=== PATIENT | male | born 1970 | race Caucasian/White ===

== ENCOUNTER 2024-05-23 08:45 | Inpatient (IN) ==
--- NOTE | 2024-05-23 09:07 | DR.URIAD ---
HPI Time Seen Time Seen by Provider: 05/23/24 09:05 PE Vital Signs Vitals: Vital Signs Temperature 96.5 F Temperature 97.0 F Pulse Rate [Left] 78 Pulse Rate 89 Respiratory Rate 24 Respiratory Rate 20 Blood Pressure [Right Arm] 119/77 Blood Pressure 112/80 O2 Sat by Pulse Oximetry 97 O2 Sat by Pulse Oximetry 94 ROR Labs Reviewed 05/27/24 05:34 05/27/24 05:34 Laboratory: 05/23/24 09:40 Blood Blood Culture - Preliminary 05/23/24 09:35 Blood Blood Culture - Preliminary WBC 12.6 X10^3/uL (3.6-10.0) H 05/23/24 09:40 RBC 4.86 X10^6/uL (4.7-6.0) 05/23/24 09:40 Hgb 14.1 g/dL (13.5-18.0) 05/23/24 09:40 Hct 41.6 % (42.0-54.0) L 05/23/24 09:40 MCV 85.7 fL (80.0-100.0) 05/23/24 09:40 MCH 29.0 pg (27.0-34.0) 05/23/24 09:40 MCHC 33.8 g/dL (33.0-35.0) 05/23/24 09:40 RDW 13.8 % (11.6-16.5) 05/23/24 09:40 Plt Count 817 X10^3/uL (150.0-450.0) H 05/23/24 09:40 MPV 7.1 fL (7.4-11.0) L 05/23/24 09:40 Neut % (Auto) 78.6 % (42.0-75.0) H 05/23/24 09:40 Lymph % (Auto) 11.5 % (21.0-51.0) L 05/23/24 09:40 [place] % (Auto) 7.8 % (0.0-13.0) 05/23/24 09:40 Eos % (Auto) 1.2 % (0.9-2.9) 05/23/24 09:40 Baso % (Auto) 0.9 % (0.2-1.0) 05/23/24 09:40 Neut # (Auto) 9.9 x10^3/uL (2.2-4.8) H 05/23/24 09:40 Lymph # (Auto) 1.5 X10^3/uL (1.3-2.9) 05/23/24 09:40 [place] # (Auto) 1.0 x10^3/uL (0.3-0.8) H 05/23/24 09:40 Eos # (Auto) 0.2 x10^3/uL (0.0-0.2) 05/23/24 09:40 Baso # (Auto) 0.1 X10^3/uL (0.0-0.1) 05/23/24 09:40 Absolute Nucleated RBC 0.0 /100WBC 05/23/24 09:40 Sodium 134 mmol/L (136-145) L 05/23/24 09:40 Corrected Sodium 135 mmol/L (136-145) L 05/23/24 09:40 Potassium 3.9 mmol/L (3.5-5.1) 05/23/24 09:40 Chloride 95 mmol/L (98-107) L 05/23/24 09:40 Carbon Dioxide 31.4 mmol/L (21-32) 05/23/24 09:40 BUN 20 mg/dL (7-18) H 05/23/24 09:40 Creatinine 1.32 mg/dL (0.70-1.30) H 05/23/24 09:40 Est GFR (MDRD) Af Amer > 60 (>60) 05/23/24 09:40 Est GFR (MDRD) Non-Af 60 (>60) 05/23/24 09:40 Glucose 125 mg/dL (65-99) H 05/23/24 09:40 Lactic Acid 2.1 mmol/L (0.4-2.0) H 05/23/24 09:40 Calcium 9.4 mg/dL (8.5-10.1) 05/23/24 09:40 Corrected Calcium 10.8 mg/dL (8.5-10.1) H 05/23/24 09:40 Total Bilirubin 0.50 mg/dL (0.2-1.0) 05/23/24 09:40 AST 27 Units/L (15-37) 05/23/24 09:40 ALT 52 Units/L (12-78) 05/23/24 09:40 Alkaline Phosphatase 184 Units/L (46-116) H 05/23/24 09:40 Total Protein 8.5 g/dL (6.4-8.2) H 05/23/24 09:40 Albumin 2.2 g/dL (3.4-5.0) L 05/23/24 09:40 Globulin 6.3 g/dL (2.5-4.5) H 05/23/24 09:40 Albumin/Globulin Ratio 0.3 Ratio (1.1-2.1) L 05/23/24 09:40 Amylase 33 Units/L (25-115) 05/23/24 09:40 Lipase 19 Units/L (16-77) 05/23/24 09:40 Ethyl Alcohol mg/dL < 3 mg/dL (0-19.9) 05/23/24 09:40 Opioid Opioid Risk Tool Total: 0 Total Score Risk Category: Low Risk Copyright: Edis [employer] predicting aberrant behaviors Discharge Plan Discharge Plan Patient Disposition: 01 HOME, SELF-CARE Condition: Stable
[2024-05-23 09:17] VITALS: BMI 29.0
--- NOTE | 2024-05-23 09:40 | EKG ---
Test Reason : AMS Blood Pressure : */* mmHG Vent. Rate : 87 BPM Atrial Rate : 87 BPM P-R Int : 162 ms QRS Dur : 104 ms QT Int : 378 ms P-R-T Axes : 35 11 34 degrees QTc Int : 454 ms Normal sinus rhythm Incomplete right bundle branch block Borderline ECG No previous ECGs available Confirmed by Zia Jimenez MD ([id number]) on 05/23/2024 12:31:02 PM Referred By: Confirmed By: Zia Jimenez MD
[2024-05-23 10:18] LABS: BASOPHILS # (AUTO) 0.1 X10^3/uL (0.0-0.1); BASOPHILS % (AUTO) 0.9 % (0.2-1.0); EOSINOPHILS # (AUTO) 0.2 x10^3/uL (0.0-0.2); EOSINOPHILS % (AUTO) 1.2 % (0.9-2.9); HEMATOCRIT 41.6 % (42.0-54.0); HEMOGLOBIN 14.1 g/dL (13.5-18.0); LYMPHOCYTES # (AUTO) 1.5 X10^3/uL (1.3-2.9); LYMPHOCYTES % (AUTO) 11.5 % (21.0-51.0); MEAN CORPUSCULAR HGB CONC 33.8 g/dL (33.0-35.0); MEAN CORPUSCULAR VOLUME 85.7 fL (80.0-100.0); MEAN PLATELET VOLUME 7.1 fL (7.4-11.0); MONOCYTES % (AUTO) 7.8 % (0.0-13.0); NEUTROPHILS # (AUTO) 9.9 x10^3/uL (2.2-4.8); NEUTROPHILS % (AUTO) 78.6 % (42.0-75.0); PLATELET COUNT 817 X10^3/uL (150.0-450.0); RED BLOOD COUNT 4.86 X10^6/uL (4.7-6.0); RED CELL DISTRIBUTION WIDTH 13.8 % (11.6-16.5); WHITE BLOOD COUNT 12.6 X10^3/uL (3.6-10.0)
[2024-05-23 10:27] LABS: ALANINE AMINOTRANSFERASE 52 Units/L (12-78); ALBUMIN 2.2 g/dL (3.4-5.0); ALKALINE PHOSPHATASE 184 Units/L (46-116); AMYLASE 33 Units/L (25-115); ASPARTATE AMINO TRANSFERASE 27 Units/L (15-37); BLOOD UREA NITROGEN 20 mg/dL (7-18); CALCIUM 9.4 mg/dL (8.5-10.1); CARBON DIOXIDE 31.4 mmol/L (21-32); CHLORIDE 95 mmol/L (98-107); COR CA(FOR HYPOALB) 10.8 mg/dL (8.5-10.1); COR NA(FOR HYPERGLY) 135 mmol/L (136-145); CREATININE 1.32 mg/dL (0.70-1.30); GLUCOSE 125 mg/dL (65-99); LIPASE 19 Units/L (16-77); POTASSIUM 3.9 mmol/L (3.5-5.1); SODIUM 134 mmol/L (136-145); TOTAL PROTEIN 8.5 g/dL (6.4-8.2); eGFR NON BLACK RACES 60 (>60)
[2024-05-23 10:29] LABS: BLOOD ALCOHOL < 3 mg/dL (0-19.9)
--- NOTE | 2024-05-23 11:49 | RAD ---
EXAM:Portable chestHISTORY:Altered mental statusCOMPARISON:NoneFINDINGS:Heart size is normal. Vikki are normal. Aorta is somewhat ectatic. No acute infiltrates or pleural effusions identified. Subsegmental atelectasis right lung base. Bony thorax is unremarkable.IMPRESSION:No acute infiltratesSubsegmental atelectasis right lung baseTHIS IS AN ELECTRONICALLY VERIFIED FINAL REPORT05/23/2024 11:45 AM - Electronically signed by Mike Kelley MD
--- NOTE | 2024-05-23 12:16 | CT ---
EXAM: CT brain without IV contrast HISTORY: AMS; PT C/O NECK PAIN THAT RADIATES UP - COMPARISON: None. TECHNIQUE: Multiple axial images of the brain were obtained without IV contrast. Dose reduction techniques inc luding Automated Exposure Control (AEC) and adjustment of mA and kV were utilized. FINDINGS: Visualized portions of the paranasal sinuses and mastoid air cells are clear. No calvarial fracture i s seen. No acute intracranial hemorrhage or mass effect is seen. The cerebral ventricles are normal i n size. No evidence of acute CVA. Beam hardening artifacts are seen in the middle cranial fossa. IMPRESSION: No abnormalities are seen. THIS IS AN ELECTRONICALLY VERIFIED FINAL REPORT 05/23/2024 12:13 PM - Electronically signed by Ciaran Oglesby MD
[2024-05-23] MEDS: ZOSYN VIAL 3.375 GRAMS 3.375 G in NS 100 ML IV 100 ML IV ONE (14:53)
[2024-05-23] MEDS: NS 1,000 ML IV 1,000 ML IV ONE (14:53)
[2024-05-23] MEDS ORDERED: ZOFRAN TAB 4 MG PO PRN (15:32)
[2024-05-23] MEDS: NS 1,000 ML IV 1,000 ML IV SCH (16:12)
[2024-05-23] MEDS: NICOTINE PATCH TD SCH (17:56)
[2024-05-23] MEDS: ZOSYN VIAL 4.5 GRAMS 4.5 G in NS 100 ML IV 100 ML IV SCH (21:04)
[2024-05-24] MEDS: MOTRIN TAB 600 MG PO PRN (01:38)
[2024-05-24 06:21] LABS: BASOPHILS # (AUTO) 0.2 X10^3/uL (0.0-0.1); BASOPHILS % (AUTO) 1.2 % (0.2-1.0); EOSINOPHILS # (AUTO) 0.1 x10^3/uL (0.0-0.2); EOSINOPHILS % (AUTO) 0.5 % (0.9-2.9); HEMATOCRIT 36.2 % (42.0-54.0); HEMOGLOBIN 12.1 g/dL (13.5-18.0); LYMPHOCYTES # (AUTO) 1.9 X10^3/uL (1.3-2.9); LYMPHOCYTES % (AUTO) 12.5 % (21.0-51.0); MEAN CORPUSCULAR HEMOGLOBIN 28.6 pg (27.0-34.0); MEAN CORPUSCULAR HGB CONC 33.5 g/dL (33.0-35.0); MEAN CORPUSCULAR VOLUME 85.5 fL (80.0-100.0); MONOCYTES % (AUTO) 6.5 % (0.0-13.0); NEUTROPHILS # (AUTO) 12.4 x10^3/uL (2.2-4.8); NEUTROPHILS % (AUTO) 79.3 % (42.0-75.0); PLATELET COUNT 756 X10^3/uL (150.0-450.0); RED BLOOD COUNT 4.23 X10^6/uL (4.7-6.0); RED CELL DISTRIBUTION WIDTH 13.7 % (11.6-16.5); WHITE BLOOD COUNT 15.7 X10^3/uL (3.6-10.0)
[2024-05-24 06:34] LABS: ALANINE AMINOTRANSFERASE 41 Units/L (12-78); ALBUMIN 1.7 g/dL (3.4-5.0); ALKALINE PHOSPHATASE 172 Units/L (46-116); ASPARTATE AMINO TRANSFERASE 24 Units/L (15-37); BLOOD UREA NITROGEN 19 mg/dL (7-18); CALCIUM 8.9 mg/dL (8.5-10.1); CARBON DIOXIDE 25.5 mmol/L (21-32); CHLORIDE 100 mmol/L (98-107); COR CA(FOR HYPOALB) 10.7 mg/dL (8.5-10.1); COR NA(FOR HYPERGLY) 134 mmol/L (136-145); CREATININE 1.11 mg/dL (0.70-1.30); GLUCOSE 118 mg/dL (65-99); POTASSIUM 4.1 mmol/L (3.5-5.1); SODIUM 134 mmol/L (136-145); TOTAL PROTEIN 6.9 g/dL (6.4-8.2); eGFR NON BLACK RACES > 60 (>60)
[2024-05-24] MEDS: FOLIC ACID TAB 1 MG PO SCH (09:10)
[2024-05-24] MEDS: FLOMAX PO SCH (09:10)
[2024-05-24] MEDS ORDERED: DEMEROL INJ IVP PRN (10:43)
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
[2024-05-24] MEDS: VIBRAMYCIN 100 MG in D5W 250 ML IV 250 ML IV SCH (11:37)
[2024-05-24] MEDS: LOVENOX INJ 40 MG SYR SC SCH (11:37)
--- NOTE | 2024-05-24 16:29 | RAD ---
EXAM:X-ray lumbar spine five viewsHISTORY:BACK PAIN -COMPARISON:None.FINDINGS:No scoliosis. Large anterior and lateral osteophytes are seen at L1-2 and L2-3.No pars defect is seen. There is mild grade 1 retrolisthesis of L4 on L5 and L3 on L4 likely from arthritic changes.No compression fracture is seen. No disc space narrowing is seen. Hypertrophic arthritic facet changes are seen at L5-S1.IMPRESSION:Arthritic changes are seen in the lumbar spine as described above.THIS IS AN ELECTRONICALLY VERIFIED FINAL REPORT05/24/2024 4:25 PM - Electronically signed by Ciaran Oglesby MD
[2024-05-25 06:12] LABS: BASOPHILS # (AUTO) 0.2 X10^3/uL (0.0-0.1); BASOPHILS % (AUTO) 1.1 % (0.2-1.0); EOSINOPHILS # (AUTO) 0.1 x10^3/uL (0.0-0.2); EOSINOPHILS % (AUTO) 0.8 % (0.9-2.9); HEMATOCRIT 36.2 % (42.0-54.0); HEMOGLOBIN 12.1 g/dL (13.5-18.0); LYMPHOCYTES # (AUTO) 2.1 X10^3/uL (1.3-2.9); LYMPHOCYTES % (AUTO) 15.2 % (21.0-51.0); MEAN CORPUSCULAR HEMOGLOBIN 28.4 pg (27.0-34.0); MEAN CORPUSCULAR HGB CONC 33.3 g/dL (33.0-35.0); MEAN CORPUSCULAR VOLUME 85.2 fL (80.0-100.0); MEAN PLATELET VOLUME 7.2 fL (7.4-11.0); MONOCYTES # (AUTO) 1.2 x10^3/uL (0.3-0.8); NEUTROPHILS % (AUTO) 73.9 % (42.0-75.0); PLATELET COUNT 758 X10^3/uL (150.0-450.0); RED BLOOD COUNT 4.25 X10^6/uL (4.7-6.0); RED CELL DISTRIBUTION WIDTH 13.9 % (11.6-16.5); WHITE BLOOD COUNT 13.5 X10^3/uL (3.6-10.0)
[2024-05-25 06:29] LABS: ALANINE AMINOTRANSFERASE 38 Units/L (12-78); ALBUMIN 1.7 g/dL (3.4-5.0); ALKALINE PHOSPHATASE 167 Units/L (46-116); ASPARTATE AMINO TRANSFERASE 19 Units/L (15-37); BLOOD UREA NITROGEN 14 mg/dL (7-18); CALCIUM 8.9 mg/dL (8.5-10.1); CARBON DIOXIDE 25.9 mmol/L (21-32); CHLORIDE 101 mmol/L (98-107); COR CA(FOR HYPOALB) 10.7 mg/dL (8.5-10.1); CREATININE 0.95 mg/dL (0.70-1.30); GLUCOSE 109 mg/dL (65-99); POTASSIUM 3.8 mmol/L (3.5-5.1); SODIUM 136 mmol/L (136-145); TOTAL PROTEIN 6.9 g/dL (6.4-8.2); eGFR NON BLACK RACES > 60 (>60)
[2024-05-25] MEDS ORDERED: CONSULT PHARMACY - POTASSIUM & MAGNESIUM XX SCH (07:00)
--- NOTE | 2024-05-25 10:13 | PCM.PROG ---
Progress Note Progress Note for Day of Date of Exam: 05/25/24 Subjective Subjective: Patient seen at bedside, no acute events overnight. He states he is feeling better, leg pain and swelling is better. He is able to move his foot and leg more. He is currently admitted for LLE cellulitis. Wound Cx pending. He is currently on Zosyn and doxycycline. Patient reports having US done in [place] which did not show DVT. Labs/imaging reviewed: -WBC 13.5 Hgb 12.1 -Blood Cx negative -Wound Cx pending -Lumbar XR: arthritic changes. Plan: Continue IV antibiotics, follow final cultures. Continue pain control, keep leg elevated. Continue hydration, replace electrolytes prn. Continue current medications. Monitor AM labs/imaging. Past Medical Family Social History Allergies: Allergies No Known Allergies Allergy (Verified 05/23/24 09:19) Vital Signs and I&O's Vital Signs: Vital Signs Temperature 97.4 F Temperature 97.7 F Pulse Rate [Left] 70 Pulse Rate [Left] 67 Respiratory Rate 19 Respiratory Rate 18 Blood Pressure [Right Arm] 117/67 Blood Pressure [Right Arm] 96/66 O2 Sat by Pulse Oximetry 94 O2 Sat by Pulse Oximetry 92 Intake and Output: Intake & Output 05/22/24 05/23/24 05/24/24 05/25/24 23:59 23:59 23:59 23:59 Intake Total 2202 / 2202 4103 / 4103 580 / 580 Output Total 950 / 950 2300 / 2300 275 / 275 Balance 1252 / 1252 1803 / 1803 305 / 305 Physical Exam Oriented: Normal Throat: Normal Cardiovascular: Normal Auscultation: Bowel Sounds: Normal Tenderness: Normal Skin: Tender, Hot and Wound (LLE erythema improved with open wound ) Musculoskeletal: Left and Leg Psychiatric: Normal Mood Description: Calm Affect: Normal Speech Pattern: Clear and Appropriate Laboratory and Diagnostics 05/25/24 05:42 05/25/24 05:42 Labs: 05/24/24 15:15 Leg - Right Wound Gram Stain - Final 05/24/24 15:15 Leg - Right Wound Culture - Preliminary 05/23/24 09:40 Blood Blood Culture - Preliminary 05/23/24 09:35 Blood Blood Culture - Preliminary Laboratory WBC 13.5 X10^3/uL (3.6-10.0) H 05/25/24 05:42 RBC 4.25 X10^6/uL (4.7-6.0) L 05/25/24 05:42 Hgb 12.1 g/dL (13.5-18.0) L 05/25/24 05:42 Hct 36.2 % (42.0-54.0) L 05/25/24 05:42 MCV 85.2 fL (80.0-100.0) 05/25/24 05:42 MCH 28.4 pg (27.0-34.0) 05/25/24 05:42 MCHC 33.3 g/dL (33.0-35.0) 05/25/24 05:42 RDW 13.9 % (11.6-16.5) 05/25/24 05:42 Plt Count 758 X10^3/uL (150.0-450.0) H 05/25/24 05:42 MPV 7.2 fL (7.4-11.0) L 05/25/24 05:42 Neut % (Auto) 73.9 % (42.0-75.0) 05/25/24 05:42 Lymph % (Auto) 15.2 % (21.0-51.0) L 05/25/24 05:42 [place] % (Auto) 9.0 % (0.0-13.0) 05/25/24 05:42 Eos % (Auto) 0.8 % (0.9-2.9) L 05/25/24 05:42 Baso % (Auto) 1.1 % (0.2-1.0) H 05/25/24 05:42 Neut # (Auto) 10.0 x10^3/uL (2.2-4.8) H 05/25/24 05:42 Lymph # (Auto) 2.1 X10^3/uL (1.3-2.9) 05/25/24 05:42 [place] # (Auto) 1.2 x10^3/uL (0.3-0.8) H 05/25/24 05:42 Eos # (Auto) 0.1 x10^3/uL (0.0-0.2) 05/25/24 05:42 Baso # (Auto) 0.2 X10^3/uL (0.0-0.1) H 05/25/24 05:42 Absolute Nucleated RBC 0.1 /100WBC 05/25/24 05:42 Sodium 136 mmol/L (136-145) 05/25/24 05:42 Corrected Sodium TNP 05/25/24 05:42 Potassium 3.8 mmol/L (3.5-5.1) 05/25/24 05:42 Chloride 101 mmol/L (98-107) 05/25/24 05:42 Carbon Dioxide 25.9 mmol/L (21-32) 05/25/24 05:42 BUN 14 mg/dL (7-18) 05/25/24 05:42 Creatinine 0.95 mg/dL (0.70-1.30) 05/25/24 05:42 Est GFR (MDRD) Af Amer > 60 (>60) 05/25/24 05:42 Est GFR (MDRD) Non-Af > 60 (>60) 05/25/24 05:42 Glucose 109 mg/dL (65-99) H 05/25/24 05:42 Lactic Acid 1.7 mmol/L (0.4-2.0) 05/23/24 15:00 Calcium 8.9 mg/dL (8.5-10.1) 05/25/24 05:42 Corrected Calcium 10.7 mg/dL (8.5-10.1) H 05/25/24 05:42 Total Bilirubin 0.50 mg/dL (0.2-1.0) 05/25/24 05:42 AST 19 Units/L (15-37) 05/25/24 05:42 ALT 38 Units/L (12-78) 05/25/24 05:42 Alkaline Phosphatase 167 Units/L (46-116) H 05/25/24 05:42 Total Protein 6.9 g/dL (6.4-8.2) 05/25/24 05:42 Albumin 1.7 g/dL (3.4-5.0) L 05/25/24 05:42 Globulin 5.2 g/dL (2.5-4.5) H 05/25/24 05:42 Albumin/Globulin Ratio 0.3 Ratio (1.1-2.1) L 05/25/24 05:42 Amylase 33 Units/L (25-115) 05/23/24 09:40 Lipase 19 Units/L (16-77) 05/23/24 09:40 Ethyl Alcohol mg/dL < 3 mg/dL (0-19.9) 05/23/24 09:40 Plan (1) Cellulitis: Status: Acute Qualifiers: Laterality: left Site of cellulitis: extremity Site of cellulitis of extremity: lower extremity Qualified Code(s): L03.116 - Cellulitis of left lower limb (2) Leg ulcer: Status: Acute Qualifiers: Laterality: left Non-pressure ulcer stage: unspecified non-pressure ulcer stage Qualified Code(s): L97.929 - Non-pressure chronic ulcer of unspecified part of left lower leg with unspecified severity (3) Atelectasis: Status: Acute
[2024-05-26 06:09] LABS: BASOPHILS # (AUTO) 0.1 X10^3/uL (0.0-0.1); BASOPHILS % (AUTO) 0.9 % (0.2-1.0); EOSINOPHILS # (AUTO) 0.1 x10^3/uL (0.0-0.2); EOSINOPHILS % (AUTO) 1.1 % (0.9-2.9); HEMATOCRIT 35.7 % (42.0-54.0); HEMOGLOBIN 11.7 g/dL (13.5-18.0); LYMPHOCYTES # (AUTO) 1.6 X10^3/uL (1.3-2.9); LYMPHOCYTES % (AUTO) 12.9 % (21.0-51.0); MEAN CORPUSCULAR HGB CONC 32.8 g/dL (33.0-35.0); MEAN CORPUSCULAR VOLUME 85.3 fL (80.0-100.0); MEAN PLATELET VOLUME 7.1 fL (7.4-11.0); MONOCYTES % (AUTO) 7.9 % (0.0-13.0); NEUTROPHILS # (AUTO) 9.5 x10^3/uL (2.2-4.8); NEUTROPHILS % (AUTO) 77.2 % (42.0-75.0); PLATELET COUNT 747 X10^3/uL (150.0-450.0); RED BLOOD COUNT 4.18 X10^6/uL (4.7-6.0); RED CELL DISTRIBUTION WIDTH 13.8 % (11.6-16.5); WHITE BLOOD COUNT 12.3 X10^3/uL (3.6-10.0)
[2024-05-26 06:25] LABS: ALANINE AMINOTRANSFERASE 47 Units/L (12-78); ALBUMIN 1.7 g/dL (3.4-5.0); ALKALINE PHOSPHATASE 129 Units/L (46-116); ASPARTATE AMINO TRANSFERASE 28 Units/L (15-37); BLOOD UREA NITROGEN 11 mg/dL (7-18); CALCIUM 8.6 mg/dL (8.5-10.1); CARBON DIOXIDE 27.9 mmol/L (21-32); CHLORIDE 102 mmol/L (98-107); COR CA(FOR HYPOALB) 10.4 mg/dL (8.5-10.1); COR NA(FOR HYPERGLY) 137 mmol/L (136-145); CREATININE 0.82 mg/dL (0.70-1.30); GLUCOSE 114 mg/dL (65-99); POTASSIUM 3.7 mmol/L (3.5-5.1); SODIUM 137 mmol/L (136-145); TOTAL PROTEIN 6.6 g/dL (6.4-8.2); eGFR NON BLACK RACES > 60 (>60)
[2024-05-26] MEDS ORDERED: CONSULT PHARMACY - POTASSIUM & MAGNESIUM XX SCH (08:00)
[2024-05-26] MEDS: K-DUR TAB 20 MEQ PO SCH (09:13)
[2024-05-26] MEDS: MAG-OX TAB PO SCH (09:13)
[2024-05-26] MEDS: NORCO 7.5/325 MG TAB PO PRN (10:34)
[2024-05-26] MEDS: MILK OF MAGNESIA PO SCH (10:34)
--- NOTE | 2024-05-26 11:15 | PCM.PROG ---
Progress Note Progress Note for Day of Date of Exam: 05/26/24 Subjective Subjective: Patient is a 54 year old male admitted for left lower extremity cellulitis. He is resting in bed this morning. No acute events overnight. He reports improvement in his leg pain and swelling. He is currently on Zosyn and Doxycycline. Patient reports having US done in [place] which did not show DVT. Labs/imaging reviewed: -WBC 12.3, Hgb 11.7, Plt 747, Na 137, K 3.7, Creatinine 0.82, Glucose 114 -Blood Cx negative -Wound Cx gram positive cocci -Lumbar XR: arthritic changes. Plan: Will continue IV antibiotics, follow final cultures. Continue pain control, keep leg elevated. Continue hydration, replace electrolytes prn. Continue current medications. Monitor AM labs/imaging. Past Medical Family Social History Allergies: Allergies No Known Allergies Allergy (Verified 05/23/24 09:19) Review of Systems ROS changes noted: see HPI Vital Signs and I&O's Vital Signs: Vital Signs Temperature 98.0 F Temperature 98.2 F Pulse Rate [Left] 80 Pulse Rate [Left] 69 Respiratory Rate 18 Respiratory Rate 18 Respiratory Rate 18 Blood Pressure [Right Arm] 167/92 Blood Pressure [Right Arm] 128/70 O2 Sat by Pulse Oximetry 99 O2 Sat by Pulse Oximetry 93 Intake and Output: Intake & Output 05/23/24 05/24/24 05/25/24 05/26/24 23:59 23:59 23:59 23:59 Intake Total 2202 / 2202 4103 / 4103 2926 / 2926 1255 / 1255 Output Total 950 / 950 2300 / 2300 775 / 775 600 / 600 Balance 1252 / 1252 1803 / 1803 2151 / 2151 655 / 655 Physical Exam Oriented: Normal Throat: Normal Cardiovascular: Normal Auscultation: Bowel Sounds: Normal Tenderness: Normal Skin: Red, Tender and Wound (LLE erythema improved with open wound ) Musculoskeletal: Left and Leg Psychiatric: Normal Mood Description: Calm Affect: Normal Speech Pattern: Clear and Appropriate Laboratory and Diagnostics 05/26/24 05:20 05/26/24 05:20 Labs: 05/24/24 15:15 Leg - Right Wound Gram Stain - Final 05/24/24 15:15 Leg - Right Wound Culture - Preliminary 05/23/24 09:40 Blood Blood Culture - Preliminary 05/23/24 09:35 Blood Blood Culture - Preliminary Laboratory WBC 12.3 X10^3/uL (3.6-10.0) H 05/26/24 05:20 RBC 4.18 X10^6/uL (4.7-6.0) L 05/26/24 05:20 Hgb 11.7 g/dL (13.5-18.0) L 05/26/24 05:20 Hct 35.7 % (42.0-54.0) L 05/26/24 05:20 MCV 85.3 fL (80.0-100.0) 05/26/24 05:20 MCH 28.0 pg (27.0-34.0) 05/26/24 05:20 MCHC 32.8 g/dL (33.0-35.0) L 05/26/24 05:20 RDW 13.8 % (11.6-16.5) 05/26/24 05:20 Plt Count 747 X10^3/uL (150.0-450.0) H 05/26/24 05:20 MPV 7.1 fL (7.4-11.0) L 05/26/24 05:20 Neut % (Auto) 77.2 % (42.0-75.0) H 05/26/24 05:20 Lymph % (Auto) 12.9 % (21.0-51.0) L 05/26/24 05:20 [place] % (Auto) 7.9 % (0.0-13.0) 05/26/24 05:20 Eos % (Auto) 1.1 % (0.9-2.9) 05/26/24 05:20 Baso % (Auto) 0.9 % (0.2-1.0) 05/26/24 05:20 Neut # (Auto) 9.5 x10^3/uL (2.2-4.8) H 05/26/24 05:20 Lymph # (Auto) 1.6 X10^3/uL (1.3-2.9) 05/26/24 05:20 [place] # (Auto) 1.0 x10^3/uL (0.3-0.8) H 05/26/24 05:20 Eos # (Auto) 0.1 x10^3/uL (0.0-0.2) 05/26/24 05:20 Baso # (Auto) 0.1 X10^3/uL (0.0-0.1) 05/26/24 05:20 Absolute Nucleated RBC 0.2 /100WBC 05/26/24 05:20 Sodium 137 mmol/L (136-145) 05/26/24 05:20 Corrected Sodium 137 mmol/L (136-145) 05/26/24 05:20 Potassium 3.7 mmol/L (3.5-5.1) 05/26/24 05:20 Chloride 102 mmol/L (98-107) 05/26/24 05:20 Carbon Dioxide 27.9 mmol/L (21-32) 05/26/24 05:20 BUN 11 mg/dL (7-18) 05/26/24 05:20 Creatinine 0.82 mg/dL (0.70-1.30) 05/26/24 05:20 Est GFR (MDRD) Af Amer > 60 (>60) 05/26/24 05:20 Est GFR (MDRD) Non-Af > 60 (>60) 05/26/24 05:20 Glucose 114 mg/dL (65-99) H 05/26/24 05:20 Lactic Acid 1.7 mmol/L (0.4-2.0) 05/23/24 15:00 Calcium 8.6 mg/dL (8.5-10.1) 05/26/24 05:20 Corrected Calcium 10.4 mg/dL (8.5-10.1) H 05/26/24 05:20 Magnesium 1.6 mg/dL (2.0-2.9) L 05/26/24 05:20 Total Bilirubin 0.30 mg/dL (0.2-1.0) 05/26/24 05:20 AST 28 Units/L (15-37) 05/26/24 05:20 ALT 47 Units/L (12-78) 05/26/24 05:20 Alkaline Phosphatase 129 Units/L (46-116) H 05/26/24 05:20 Total Protein 6.6 g/dL (6.4-8.2) 05/26/24 05:20 Albumin 1.7 g/dL (3.4-5.0) L 05/26/24 05:20 Globulin 4.9 g/dL (2.5-4.5) H 05/26/24 05:20 Albumin/Globulin Ratio 0.3 Ratio (1.1-2.1) L 05/26/24 05:20 Amylase 33 Units/L (25-115) 05/23/24 09:40 Lipase 19 Units/L (16-77) 05/23/24 09:40 Ethyl Alcohol mg/dL < 3 mg/dL (0-19.9) 05/23/24 09:40 Plan (1) Cellulitis: Status: Acute Qualifiers: Site of cellulitis: extremity Site of cellulitis of extremity: lower extremity Laterality: left Qualified Code(s): L03.116 - Cellulitis of left lower limb (2) Leg ulcer: Status: Acute Qualifiers: Laterality: left Non-pressure ulcer stage: unspecified non-pressure ulcer stage Qualified Code(s): L97.929 - Non-pressure chronic ulcer of unspecified part of left lower leg with unspecified severity (3) Atelectasis: Status: Acute
[2024-05-26] MEDS: COLACE CAP 100 MG PO SCH (20:08)
[2024-05-27 06:03] LABS: BASOPHILS # (AUTO) 0.1 X10^3/uL (0.0-0.1); EOSINOPHILS # (AUTO) 0.1 x10^3/uL (0.0-0.2); EOSINOPHILS % (AUTO) 1.2 % (0.9-2.9); HEMOGLOBIN 11.3 g/dL (13.5-18.0); LYMPHOCYTES # (AUTO) 1.7 X10^3/uL (1.3-2.9); RED CELL DISTRIBUTION WIDTH 13.8 % (11.6-16.5)
[2024-05-27 06:09] LABS: ALANINE AMINOTRANSFERASE 62 Units/L (12-78); ALBUMIN 1.7 g/dL (3.4-5.0); ALKALINE PHOSPHATASE 118 Units/L (46-116); ASPARTATE AMINO TRANSFERASE 34 Units/L (15-37); BLOOD UREA NITROGEN 6 mg/dL (7-18); CALCIUM 8.5 mg/dL (8.5-10.1); CARBON DIOXIDE 27.2 mmol/L (21-32); CHLORIDE 104 mmol/L (98-107); COR CA(FOR HYPOALB) 10.3 mg/dL (8.5-10.1); COR NA(FOR HYPERGLY) 136 mmol/L (136-145); CREATININE 0.76 mg/dL (0.70-1.30); GLUCOSE 112 mg/dL (65-99); MAGNESIUM 1.7 mg/dL (2.0-2.9); POTASSIUM 3.9 mmol/L (3.5-5.1); SODIUM 136 mmol/L (136-145); TOTAL PROTEIN 6.4 g/dL (6.4-8.2); eGFR NON BLACK RACES > 60 (>60)
[2024-05-27 06:20] LABS: HEMATOCRIT 34.6 % (42.0-54.0); LYMPHOCYTES % (AUTO) 13.8 % (21.0-51.0); MEAN CORPUSCULAR HGB CONC 32.7 g/dL (33.0-35.0); MEAN CORPUSCULAR VOLUME 85.5 fL (80.0-100.0); MONOCYTES # (AUTO) 0.9 x10^3/uL (0.3-0.8); MONOCYTES % (AUTO) 7.9 % (0.0-13.0); NEUTROPHILS # (AUTO) 9.2 x10^3/uL (2.2-4.8); NEUTROPHILS % (AUTO) 76.1 % (42.0-75.0); PLATELET COUNT 733 X10^3/uL (150.0-450.0); RED BLOOD COUNT 4.04 X10^6/uL (4.7-6.0); WHITE BLOOD COUNT 12.1 X10^3/uL (3.6-10.0)
[2024-05-27 08:34] VITALS: BP 110/72; PULSE 77; RESP 20; TEMP 98.4; O2SAT 97
[2024-05-27] MEDS: K-DUR TAB 20 MEQ PO SCH (11:08)
--- NOTE | 2024-05-30 14:18 | W.DIS.FURT ---
Summary of Discharge Discharge Summary of Date Date of Exam: 05/27/24 Admission Date Date of Admission: 05/23/24 Admission Diagnosis Hospital Course: Patient is a 54 year old male admitted for left lower extremity cellulitis. His hospital/treatment course included Zosyn and Doxycycline. Patient reports having US done in [place] which did not show DVT. Wound Cx positive for coagulase negative staph. Patient responded well to treatments and erythema and edema significantly improved. Pt discharged in stable condition. Rx doxycycline. Instructed to follow up with pcp in 1 week. Vital Signs: Vital Signs (72 hours) 05/24/24 12:00 05/24/24 16:00 05/24/24 19:00 Temperature 97.6 F 98.7 F Pulse Rate [Left] 82 92 H Respiratory Rate 19 19 Blood Pressure [Right Arm] 108/66 118/67 O2 Sat by Pulse Oximetry 94 L 96 Oxygen Delivery Method Room Air Room Air Room Air 05/24/24 20:00 05/24/24 21:36 05/24/24 23:24 Temperature 99.1 F 98.8 F Pulse Rate [Left] 100 H 95 H Respiratory Rate 20 20 18 Blood Pressure [Right Arm] 135/73 108/56 O2 Sat by Pulse Oximetry 94 L 94 L Oxygen Delivery Method Room Air Room Air 05/24/24 22:36 05/25/24 04:00 05/25/24 07:57 Temperature 97.7 F 97.4 F L Pulse Rate [Left] 67 70 Respiratory Rate 20 18 19 Blood Pressure [Right Arm] 96/66 117/67 O2 Sat by Pulse Oximetry 92 L 94 L Oxygen Delivery Method Room Air Room Air 05/25/24 07:00 05/25/24 12:00 05/25/24 15:53 Temperature 97.8 F 97.7 F Pulse Rate [Left] 70 73 Respiratory Rate 18 18 Blood Pressure [Right Arm] 108/65 124/67 O2 Sat by Pulse Oximetry 94 L 97 Oxygen Delivery Method Room Air Room Air Room Air 05/25/24 20:08 05/25/24 19:00 05/25/24 20:00 Temperature 97.8 F Pulse Rate [Left] 82 Respiratory Rate 18 18 Blood Pressure [Right Arm] 121/57 O2 Sat by Pulse Oximetry 94 L Oxygen Delivery Method Room Air 05/26/24 00:00 05/25/24 21:08 05/26/24 04:00 Temperature 98.0 F 98.2 F Pulse Rate [Left] 92 H 69 Respiratory Rate 18 16 18 Blood Pressure [Right Arm] 117/67 128/70 O2 Sat by Pulse Oximetry 93 L 93 L Oxygen Delivery Method 05/26/24 07:51 05/26/24 10:34 05/26/24 09:54 Temperature 98.0 F Pulse Rate [Left] 80 Respiratory Rate 18 18 Blood Pressure [Right Arm] 167/92 O2 Sat by Pulse Oximetry 99 Oxygen Delivery Method Room Air 05/26/24 11:51 05/26/24 11:34 05/26/24 16:00 Temperature 97.2 F L 98.1 F Pulse Rate [Left] 69 78 Respiratory Rate 18 18 20 Blood Pressure [Right Arm] 131/73 131/69 O2 Sat by Pulse Oximetry 99 96 Oxygen Delivery Method Room Air Room Air 05/26/24 19:00 05/26/24 20:00 05/27/24 00:00 Temperature 97.9 F 98.6 F Pulse Rate [Left] 87 84 Respiratory Rate 19 21 Blood Pressure [Right Arm] 120/71 119/68 O2 Sat by Pulse Oximetry 99 95 Oxygen Delivery Method Room Air Room Air Room Air 05/27/24 04:00 05/27/24 08:00 05/27/24 07:00 Temperature 99.0 F 98.4 F Pulse Rate [Left] 83 77 Respiratory Rate 22 20 Blood Pressure [Right Arm] 123/72 110/72 O2 Sat by Pulse Oximetry 96 97 Oxygen Delivery Method Room Air Room Air Room Air Labs: Laboratory Last Values WBC 12.1 X10^3/uL (3.6-10.0) H 05/27/24 05:34 RBC 4.04 X10^6/uL (4.7-6.0) L 05/27/24 05:34 Hgb 11.3 g/dL (13.5-18.0) L 05/27/24 05:34 Hct 34.6 % (42.0-54.0) L 05/27/24 05:34 MCV 85.5 fL (80.0-100.0) 05/27/24 05:34 MCH 28.0 pg (27.0-34.0) 05/27/24 05:34 MCHC 32.7 g/dL (33.0-35.0) L 05/27/24 05:34 RDW 13.8 % (11.6-16.5) 05/27/24 05:34 Plt Count 733 X10^3/uL (150.0-450.0) H 05/27/24 05:34 MPV 7.0 fL (7.4-11.0) L 05/27/24 05:34 Neut % (Auto) 76.1 % (42.0-75.0) H 05/27/24 05:34 Lymph % (Auto) 13.8 % (21.0-51.0) L 05/27/24 05:34 [place] % (Auto) 7.9 % (0.0-13.0) 05/27/24 05:34 Eos % (Auto) 1.2 % (0.9-2.9) 05/27/24 05:34 Baso % (Auto) 1.0 % (0.2-1.0) 05/27/24 05:34 Neut # (Auto) 9.2 x10^3/uL (2.2-4.8) H 05/27/24 05:34 Lymph # (Auto) 1.7 X10^3/uL (1.3-2.9) 05/27/24 05:34 [place] # (Auto) 0.9 x10^3/uL (0.3-0.8) H 05/27/24 05:34 Eos # (Auto) 0.1 x10^3/uL (0.0-0.2) 05/27/24 05:34 Baso # (Auto) 0.1 X10^3/uL (0.0-0.1) 05/27/24 05:34 Absolute Nucleated RBC 0.0 /100WBC 05/27/24 05:34 Sodium 136 mmol/L (136-145) 05/27/24 05:34 Corrected Sodium 136 mmol/L (136-145) 05/27/24 05:34 Potassium 3.9 mmol/L (3.5-5.1) 05/27/24 05:34 Chloride 104 mmol/L (98-107) 05/27/24 05:34 Carbon Dioxide 27.2 mmol/L (21-32) 05/27/24 05:34 BUN 6 mg/dL (7-18) L 05/27/24 05:34 Creatinine 0.76 mg/dL (0.70-1.30) 05/27/24 05:34 Est GFR (MDRD) Af Amer > 60 (>60) 05/27/24 05:34 Est GFR (MDRD) Non-Af > 60 (>60) 05/27/24 05:34 Glucose 112 mg/dL (65-99) H 05/27/24 05:34 Lactic Acid 1.7 mmol/L (0.4-2.0) 05/23/24 15:00 Calcium 8.5 mg/dL (8.5-10.1) 05/27/24 05:34 Corrected Calcium 10.3 mg/dL (8.5-10.1) H 05/27/24 05:34 Magnesium 1.7 mg/dL (2.0-2.9) L 05/27/24 05:34 Total Bilirubin 0.30 mg/dL (0.2-1.0) 05/27/24 05:34 AST 34 Units/L (15-37) 05/27/24 05:34 ALT 62 Units/L (12-78) 05/27/24 05:34 Alkaline Phosphatase 118 Units/L (46-116) H 05/27/24 05:34 Total Protein 6.4 g/dL (6.4-8.2) 05/27/24 05:34 Albumin 1.7 g/dL (3.4-5.0) L 05/27/24 05:34 Globulin 4.7 g/dL (2.5-4.5) H 05/27/24 05:34 Albumin/Globulin Ratio 0.4 Ratio (1.1-2.1) L 05/27/24 05:34 Amylase 33 Units/L (25-115) 05/23/24 09:40 Lipase 19 Units/L (16-77) 05/23/24 09:40 Ethyl Alcohol mg/dL < 3 mg/dL (0-19.9) 05/23/24 09:40 Reason For Visit: CELLULITIS, LACTIC ACIDEMIA, AMS Discharge Date Discharge Date: 05/27/24 Discharge Diagnosis All Active Problems (Updated 05/24/24 @ 10:44 by Cassy Sigala) Atelectasis (Acute) Leg ulcer (Acute) Cellulitis (Acute) Plan of Treatment: Continue with present treatment and follow up plan. Pt is to keep follow up appointment as instructed and take medications as ordered. Discharge Medications Discharge Medications: No Known Allergies Allergy (Verified 05/23/24 09:19) CONTINUE taking the following medications folic acid 1 mg tablet 1 mg PO QDAY 05/23/24 [History] tamsulosin 0.4 mg capsule 0.4 mg PO QDAY 05/23/24 [History] Discharge Plan Discharge Plan Hospital Course: Patient is a 54 year old male admitted for left lower extremity cellulitis. His hospital/treatment course included Zosyn and Doxycycline. Patient reports having US done in [place] which did not show DVT. Wound Cx positive for coagulase negative staph. Patient responded well to treatments and erythema and edema significantly improved. Pt discharged in stable condition. Rx doxycycline. Instructed to follow up with pcp in 1 week. Patient Disposition: HOME, SELF-CARE Condition: Stable Health Concerns: Post Hospitalization: new medications and changes needed to prevent readmission or further decline. Pt educated and given instructions on all concerns. Care Plan Goals: Problem: Infection Goal: Temperature within normal limits. Resolved infection. Instructions: Follow provided instructions. Follow up with primary physician as directed. Contact primary care physician or report to the closest Emergency Room if condition worsens. Plan of Treatment: Continue with present treatment and follow up plan. Pt is to keep follow up appointment as instructed and take medications as ordered. Prescriptions: New doxycycline hyclate 100 mg Capsule 100 mg PO BID Qty: 20 0RF Continued tamsulosin 0.4 mg capsule 0.4 mg PO QDAY folic acid 1 mg tablet 1 mg PO QDAY Follow ups/Referrals Follow ups/Referrals: DAVID MEANS V [REFERRING] - 05/31/24 11:30 am ,Misc [Primary Care Provider] - 3 days Instructions Instructions: Cellulitis, Adult, [id number] Activity Restrictions/Additional Instructions: ELevate leg higher than heart Stand Alone Forms: Excuse From Work or School, Post Hospital Follow Up Care
== END 2024-05-27 11:55 | disposition home or self-care (01) | DRG 603 ==
LOC: ER 08:45 → MED/SURG 08:45 → OBSVTOIN 14:06 → MED/SURG 15:10
PROVIDERS: ADMIT Internal Medicine; ATTEND Internal Medicine